=== PATIENT | male | born 1985 | race Caucasian/White ===

== ENCOUNTER 2020-07-13 09:59 | Emergency (ER) | payer MEDICARE, OTHER ==
[~2020-07-13] VITALS: Ht 188 cm; Wt 69.8 kg
[2020-07-13] MEDS ORDERED: NAPR500 PO (10:55)
== END 2020-07-13 11:18 | disposition home or self-care (01) ==
LOC: ER 09:59
DX: R10.32 Left lower quadrant pain (principal); Z59.0 Homelessness
CPT/HCPCS: 76857; 76870; 99284-25; A9270